=== PATIENT | male | born 1930 | race Caucasian/White ===

== ENCOUNTER 2017-05-01 06:18 | Day surgery (SDC) | payer OTHER ==
[2017-04-25 12:10] LABS: HEMATOCRIT 38.9 % (40.0-51.0); HEMOGLOBIN 12.7 g/dL (13.6-17.8)
[2017-04-25 13:05] LABS: CALCIUM, SERUM 9.2 MG/DL (8.5-10.4); CHLORIDE, SERUM 108 MMOL/L (96-112); CO2 (CARBON DIOXIDE) 28 MMOL/L (24-34); GFR AFRICAN AMERICAN 86 ML/MIN (>=60); GFR NON AFRICAN AMERICAN 74 ML/MIN (>=60); GLUCOSE, SERUM 98 MG/DL (60-99); POTASSIUM, SERUM 4.1 MMOL/L (3.5-5.3); SODIUM, SERUM 143 MMOL/L (135-148)
[2017-04-25 13:06] LABS: BUN (BLOOD UREA NITROGEN) 12 MG/DL (6-23); CREATININE 0.93 MG/DL (0.70-1.30)
--- NOTE | ~2017-05-01 | OP ---
Record Of Operation [facility] [address] [place]. [address] NAME: MELISSA JOINER : 30 STATUS : REG [facility] PAT#: [id number] AGE: 86 ADM/REG DATE : 05/01/17 MR#: [id number] REPORT SERV DATE: 05/01/17 DICTATED BY: HIRAM OLIVAS DATE: 05/01/17 REPORT STATUS : Draft TRANSCRIBED BY: MODSaul DATE: 05/01/17 DATE OF PROCEDURE: 05/01/2017 PREOPERATIVE DIAGNOSES: 1. Large incarcerated bilateral inguinal hernias with extension to the scrotum. 2. Hypertension. 3. Gastroesophageal reflux disease. POSTOPERATIVE DIAGNOSES: 1. Large incarcerated bilateral inguinal hernias with extension to the scrotum. 2. Hypertension. 3. Gastroesophageal reflux disease. ANESTHESIA: General. SURGEON: Hiram Olivas M.D. SLATE PICKER: Al[place]. ESTIMATED BLOOD LOSS: 20 mL. COMPLICATIONS: None. DRAINS: None. FINDINGS: The patient was noted to have bilateral incarcerated pantaloon inguinal hernias that were repaired with mesh. OPERATIVE TECHNIQUE: The patient was brought to the operative room, and placed on the table in supine position. He had preoperative IV antibiotics. He had sequential hose in place. He voided prior to the procedure. He underwent general endotracheal anesthesia and was prepped and draped in sterile fashion and a time-out was completed. Local anesthesia was instilled to the left inguinal region. A 15 blade knife was used to make an incision two fingerbreadths above the pubic tubercle on the left side and it was extended toward the anterior iliac spine. The incision was carried through the subcutaneous tissues down to the level of the anterior fascia. The anterior fascia was then divided in the direction of the fibers through the superficial ring. Blunt dissection was used to dissect until Mike's ligament, iliopubic tract, and internal oblique aponeurosis were clearly identified. The cord was then encircled, and a large amount of preperitoneal fat was then reduced from the cord structures and circumferentially dissected until it was identified that the patient had a pantaloon type hernia. The entire incarcerated contents and sac were reduced away from the cord structures that were identified and preserved throughout the procedure. The hernia was then reduced en brianna. The pelvic floor was closed loosely for ease of mesh placement using a running 0 Vicryl suture. The cord was once again examined and there was no evidence of any additional indirect inguinal hernia sac. The ProGrip left-sided mesh was then positioned and encircled around the cord without undue tension. It was secured to Mike's Record Of Operation [facility] [address] [place]. [address] NAME: MELISSA JOINER : 30 STATUS : REG [facility] PAT#: [id number] AGE: 86 ADM/REG DATE : 05/01/17 MR#: [id number] REPORT SERV DATE: 05/01/17 DICTATED BY: HIRAM OLIVAS DATE: 05/01/17 REPORT STATUS : Draft TRANSCRIBED BY: PARMINDER DATE: 05/01/17 ligament with a 2-0 Prolene suture and secured from [id number] along the iliopubic tract, lateral to where the cord exited the deep ring. There was no evidence of any other herniation or abnormalities. The wound was irrigated. The anterior fascia was reapproximated using a running 2-0 Vicryl suture. The wound was irrigated once again and subcutaneous tissues were reapproximated using a 3-0 Vicryl suture. The skin was reapproximated using running subcuticular Monocryl suture. At this point, attention was turned to the right side and the incision was then made two fingerbreadths above the pubic tubercle on the right and extended toward the anterior iliac spine. The dissection was carried down to the anterior fascia which was divided in the direction of the fibers through the superficial ring. Dissection continued bluntly until iliopubic tract, Mike's ligament, and internal oblique aponeurosis were identified. The cord was then encircled using blunt dissection and the hernia sac was once again completely reduced. There was a large amount of preperitoneal fat within the sac which began in the direct space as for the left side and extended into the deep ring. This entire hernia was reduced from the cord structures that were preserved and reduced en brianna. The direct space was once again loosely reapproximated using a 0 Vicryl suture. The mesh was then placed on the right side. It was a right-sided ProGrip mesh and encircling the cord without undue tension. It was positioned and then secured with a Prolene suture as described for the other side. The closure was exactly as for the left side as well. Dermabond was applied to the skin. The patient was extubated and taken to recovery room in stable condition. All sponge needle counts were reported correct. KIANA/PARMINDER Hiram Olivas M.D. / [id number] CC: Jessica Stewart MD David Sahaj, M.D.
[~2017-05-01 06:18] MED LIST: CIP2 PO; DSS PO; EYE VITAMINS PO; FISH OIL1200 MG PO; FLOMAX4 PO; PCET PO; PERCOCET1 TA2 PO; PRIN20 PO; PROSCAR5 PO; PROTONIX PO; ZANTAC150 MG PO
== END 2017-05-01 14:05 | disposition home or self-care (01) ==
LOC: SDC 06:18
PROVIDERS: Surgery
PROC: 0YUA0JZ Supplement Bilateral Inguinal Region with Synthetic Substitute, Open Approach (ICD-10-PCS; principal; 2017-05-01 07:45)
DX: K40.00 Bilateral inguinal hernia, with obstruction, without gangrene, not specified as recurrent (principal); I10 Essential (primary) hypertension; K21.9 Gastro-esophageal reflux disease without esophagitis; M19.90 Unspecified osteoarthritis, unspecified site; Z98.41 Cataract extraction status, right eye; Z98.42 Cataract extraction status, left eye; Z96.1 Presence of intraocular lens; Z86.010 Personal history of colon polyps; Z87.442 Personal history of urinary calculi; Z98.890 Other specified postprocedural states
CPT/HCPCS: 80048; 85014; 85018; 93005; A9270-GY; C1781; J0690; J2270; J2405; J2710; J3010